=== PATIENT | female | born 1990 | race Two or more races ===

== ENCOUNTER 2017-09-29 10:39 | Outpatient (CLI) | payer MEDICAID ==
--- NOTE | 2017-09-29 12:36 | Ultrasound Report ---
LEFT BREAST ULTRASOUND: 09/29/2017 CLINICAL INDICATION: Palpable abnormality, follow up. TECHNIQUE: Real-time scanning was performed with event representative static images obtained. COMPARISON: 06/10/2016, 08/20/2015. FINDINGS: Ultrasound of the left upper inner palpable abnormality was performed. At this site, again is seen a 5 x 5 x 3 mm circumscribed hypoechoic nodule, with posterior acoustic enhancement, compatible with a small fibroadenoma. No sonographically suspicious findings are identified. IMPRESSION: STABLE SMALL FIBROADENOMA. RECOMMENDATIONS: Routine annual screening, to commence at age 40, unless otherwise clinically indicated. Continued clinical surveillance of the palpable fibroadenoma. BIRADS CATEGORY 2 - Benign findings. TD: 09/29/2017 12:35
== END 2017-09-29 10:40 | disposition home or self-care (01) ==
LOC: DI 10:39
PROVIDERS: ATTEND Nurse Practitioner Family
DX: D24.2 Benign neoplasm of left breast (principal)
CPT/HCPCS: 76642

== ENCOUNTER 2022-11-04 17:38 | Emergency (ER) | payer MEDICAID ==
[2022-11-04 17:43] VITALS: BP 153/88
--- NOTE | 2022-11-04 17:43 | ED Physician Documentation ---
History of Present Illness - Stated complaint Stated Complaint: LT LEG SWELLING - History obtained from History obtained from: Patient - Additonal information Additional information: This is a very nice 32-year-old female who presents with left leg swelling. She was seen in the clinic earlier and they sent her over to the ER for an ultrasound to rule out DVT.Patient states she has noted the left ankle swelling for the last 3 or 4 days. She denies any injury. She states she sometimes gets mild swelling on the right side to but it is worse on the left. She has not noted any redness, and denies any calf pain or pain in the groin or upper leg. She has not had any chest pain, dyspnea, abdominal pain, nausea vomiting or diarrhea. Patient is currently undergoing treatment for large fibroids by her OB and is currently on double dose of oral contraceptives. She also did a short course of TXA. Her bleeding has slowed and it sounds as though the plan is to have a laparoscopic myomectomy in a few months. She has no other risk factors for DVT, no prior DVT or PE, and no family history of same. 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 No calf pain or fullness, no cords.) Results - Vitals Vitals: Vital Signs - 24 hr 11/04/22 17:41 Temperature 36.5 C Heart Rate 83 Respiratory 16 Rate Blood Pressure 153/88 H O2 Saturation 100 Oxygen O2 Source Room air - Rads (name of study) No standard instances Relevant Findings:: Prelim report reviewed PD Medical Decision Making - ED course Complexity details: reviewed results, d/w patient, d/w family ED course: This is a very nice 32-year-old female who presented with left ankle swelling. There is concern for possible DVT as patient is on double dose OCPs at this time for fibroids. No swelling is located around the left ankle, there is no signs of infection or cellulitis, she has no calf pain or palpable cords. We did obtain an ultrasound which was negative for DVT. The patient has No signs of PE clinically. I recommended that she continue follow-up with her OB To see if reduction in OCP therapy possible. I recommended supportive measures for lower extremity swelling including elevation, compression stockings, low-salt diet and activity. I discussed return precautions if new or worsening symptoms. Departure - Departure Disposition: 01 Home, Self Care Clinical Impression: Swelling of lower extremity Condition: Good Instructions: ED Leg Swelling Unilateral Comments: You presented due to left leg swelling. We did An ultrasound of the leg to rule out blood clot and this was negative, there is no DVT or blood clot in the leg. I recommend that you keep your legs elevated when possible, adhere to a low-salt diet, and consider using compression stockings to help with swelling. Please follow-up with your OB surgeon For ongoing management of your fibroids.
--- NOTE | 2022-11-04 18:44 | Ultrasound Report ---
PROCEDURE: Duplex Ext Veins Left INDICATIONS: r/o left leg DVT please, pain/swelling TECHNIQUE: Real-time imaging, as well as color and pulse Doppler interrogation, were performed of the lower extr emity deep veins from the inguinal ligament to the popliteal fossa. COMPARISON: None. FINDINGS: The deep veins are normally compressible, and free of intraluminal thrombus. Color and pu lse Doppler demonstrate normal phasic intraluminal flow. There is normal augmentation response to di stal compression maneuver. IMPRESSION: No evidence of DVT. Reviewed by: Skip Corcoran MD on 11/04/2022 6:43 PM PDT Approved by: Skip Corcoran MD on 11/04/2022 6:43 PM PDT Station ID: [id number]
== END 2022-11-04 18:39 | disposition home or self-care (01) ==
LOC: ED 17:38
DX: R22.42 Localized swelling, mass and lump, left lower limb (principal); D25.9 Leiomyoma of uterus, unspecified
CPT/HCPCS: 99283; 99284

== ENCOUNTER 2022-12-15 08:15 | Outpatient (CLI) | payer MEDICAID | END 2022-12-15 08:16 | disposition home or self-care (01) | LOC: LAB.S 08:15 | PROVIDERS: ATTEND Emergency Medicine | DX: Z00.00 Encounter for general adult medical examination without abnormal findings (principal) | CPT/HCPCS: 81599; 86480 ==

== ENCOUNTER 2023-05-24 19:47 | Emergency (ER) | payer MEDICAID ==
[2023-05-24 20:00] VITALS: BP 130/88; O2SAT 100
--- NOTE | 2023-05-24 21:12 | ED Physician Documentation ---
PD HPI UPPER EXT INJURY - Stated complaint Stated Complaint: LT HAND SWELLING - Chief complaint Chief Complaint: Ext Problem - History obtained from History obtained from: Patient - Additonal information Additional information: The patient comes to the emergency department chief complaint of blue spot and swollen painful area on the dorsum of left hand that started this afternoon. The patient states that she does not recall having any distinct injury. She states she was just sitting on her couch watching TV when she suddenly looked down and noticed the above findings on her left hand. She states was tender to the touch also. Patient states she is mainly here because she is worried about a blood clot. No symptoms anywhere else. No shortness of breath or chest pain. No history of blood clots. 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 - Allergies Allergies/Adverse Reactions: Allergies Allergy/AdvReac Type Severity Reaction Status Date / Time No Known Drug Allergies Allergy Verified 05/24/23 19:51 PD ED PE NORMAL - Vitals Vital signs reviewed: Yes - General General: Alert and oriented X 3, No acute distress, Well developed/nourished - HEENT HEENT: Atraumatic, EOMI, Moist mucous membranes - Neck Neck: Supple, no meningeal sign - Cardiac Cardiac: Strong equal pulses - Respiratory Respiratory: No respiratory distress - Derm Derm: Warm and dry, Other (Approximately 1 cm diameter area of contusion versus superficial venous rupture on dorsum of left hand. No edema. No erythema. Mild point tenderness to the area.) - Extremities Extremities: No deformity, Other (Other than skin findings above, left hand exam normal.) - Neuro Neuro: Alert and oriented X 3, No motor deficit, No sensory deficit - Psych Psych: Normal mood, Normal affect Results - Vitals Vitals: Vital Signs - 24 hr 05/24/23 19:52 Temperature 36.5 C Heart Rate 80 Respiratory 16 Rate Blood Pressure 130/88 H O2 Saturation 100 Oxygen O2 Source Room air PD Medical Decision Making - ED course Complexity details: considered differential, d/w patient ED course: I discussed with the patient that her exam is indicative of a benign condition and that the symptoms she is reporting as well as the findings on exam do not indicate a DVT. I am not sure what has caused her to have a contusion or venous rupture, but her hand is otherwise atraumatic and there are no signs of infection, and feel she is stable for discharge home with symptomatic management. We discussed the usual indications for return. Departure - Departure Disposition: 01 Home, Self Care Clinical Impression: Contusion Qualifiers: Encounter type: initial encounter Contusion area: hand Laterality: left Qualified Code(s): S60.222A - Contusion of left hand, initial encounter Condition: Stable Instructions: ED Contusion Hand Comments: The findings on hand examination are benign, and do not represent a deep vein cl ot. Actually, the findings do not appear to be a clot at all, but rather, either a bruise or a burst tiny vein. At this point in time, there is no evidence of a serious condition, and the spot on your hand will resolve on its own. You may apply ice packs as needed and take ibuprofen and Tylenol. If you develop an angry red area or streak going up your arm, please have the area rechecked.
== END 2023-05-24 21:19 | disposition home or self-care (01) ==
LOC: ED 19:47
DX: S60.222A Contusion of left hand, initial encounter (principal); X58.XXXA Exposure to other specified factors, initial encounter
CPT/HCPCS: 99281; 99282